=== PATIENT | female | born 1995 | race Caucasian/White ===

== ENCOUNTER → 2019-07-28 21:50 | Observation (INO) ==
[2019-07-28 19:31] LABS: Bilirubin,Urine Negative (Negative); Blood,Urine Negative (Negative); Clarity,Urine Clear (Clear); Color,Urine Yellow (Yellow); Glucose,Urine (UA) Normal (Normal); Ketones,Urine Negative (Negative); Leukocyte Esterase,Urine Moderate (Negative); Nitrite,Urine Negative (Negative); Protein,Urine Negative (Neg-Trace); Specific Gravity,Urine 1.028 (1.010-1.025); Urobilinogen,Urine Normal (Normal)
[2019-07-28 19:32] LABS: Bacteria,Urine Few per hpf (None-Few); Hyaline Casts,Urine None Seen per lpf (None-Few); RBC,Urine 0-3 per hpf (0-3); Squamous Epithelial Cell,Urine Many per lpf (None-Few)
[2019-07-28 20:38] LABS: Candida DNA DETECTED (Not Detect); Gardnerella DNA DETECTED (Not Detect); Trichomonas DNA Not Detected (Not Detect)
== END | disposition home or self-care (01) ==
LOC: 1NENULAB
PROVIDERS: ADMIT Advanced Practice Midwife; ATTEND Advanced Practice Midwife

== ENCOUNTER 2021-07-27 13:18 | Inpatient (IN) ==
[~2021-07-27 13:18] MED LIST: Azithromycin 500 MG in 0.9 % Sodium Chloride 250 ML IVPB PRN; Famotidine 20 MG/2 ML VIAL IVP PRN; Metoclopramide 10 MG/2 ML VIAL IVP PRN; Naloxone 0.4 MG/ML INJ IVP PRN; Ondansetron 4 MG/2 ML VIAL IVP PRN
[2021-07-27] MEDS ORDERED: Ringers Solution, Lactated 1,000 ML IVC SCH (13:30)
[2021-07-27 13:53] LABS: Amphetamine Screen,Urine Negative ng/mL (Cutoff=1000); Barbiturate Screen,Urine Negative ng/mL (Cutoff=200); Benzodiazepines Screen,Urine Negative ng/mL (Cutoff=200); Cannabinoid Screen,Urine Negative ng/mL (Cutoff = 50); Cocaine Screen,Urine Negative ng/mL (Cutoff= 300); Opiate Screen,Urine Negative ng/mL (Cutoff=300); Phencyclidine Screen,Urine Negative ng/mL (Cutoff=25)
[2021-07-27 13:54] LABS: Basophils % 0.4 %; Eosinophils # 0.1 K/mcL (0.0-0.6); Eosinophils % 0.8 %; Hematocrit 31.2 % (35.3-44.9); Hemoglobin 9.4 g/dL (11.5-15.4); Immature Granulocytes % 0.5 % (0-4); Lymphocytes # 1.6 K/mcL (0.6-4.6); Lymphocytes % 13.8 %; Mean Corpuscular HGB Conc 30.1 g/dL (31.6-35.5); Mean Corpuscular Hemoglobin 22.4 pg (28.0-33.3); Mean Corpuscular Volume 74.5 fL (83.0-100.0); Mean Platelet Volume 10.6 fL (9.4-12.4); Monocytes # 0.8 K/mcL (0.0-1.3); Monocytes % 7.3 %; Neutrophils # 8.8 K/mcL (1.6-8.9); Platelet Count 290 K/mcL (140-400); Red Blood Count 4.19 M/mcL (3.82-4.97); Red Cell Distribution Width 17.3 % (11.5-14.5); Segmented Neutrophils % 77.2 %; White Blood Count 11.4 K/mcL (4.3-11.1)
[2021-07-27] MEDS ORDERED: Penicillin G Potassium 5,000,000 UNIT in 0.9 % Sodium Chloride Mini Bag 100 ML IVPB ONE (14:00)
[2021-07-27] MEDS ORDERED: *HR* FentaNYL (PF) 100 MCG/2 ML VIAL ONE (14:08)
[2021-07-27] MEDS ORDERED: Ropivacaine/PF 0.2% 20 ML VIAL ONE (14:08)
[2021-07-27] MEDS ORDERED: Epidural Premix (fent/bupiv) 110 ML EP ONE (14:10)
[2021-07-27 14:18] LABS: Influenza A PCR Negative (Negative); Influenza B PCR Negative (Negative); Resp. Syncytial Virus PCR Negative (Negative)
[2021-07-27] MEDS ORDERED: EPHEDrine 50 MG/ML VIAL IVP PRN (14:32)
[2021-07-27 14:37] LABS: SARS-CoV-2 by PCR (In House) Negative (Negative)
[2021-07-27] MEDS ORDERED: Epidural Premix (fent/bupiv) 110 ML EP SCH (14:45)
[2021-07-27] MEDS ORDERED: Oxytocin 20 units/ LR 1000 mL 20 UNIT/1,000 ML BAG IVC SCH ×2 (18:00→22:23)
[2021-07-27] MEDS ORDERED: Penicillin G Potassium 2,500,000 UNIT/105 ML MLS IVPB SCH (18:00)
[2021-07-27] MEDS ORDERED: Acetaminophen 325 MG TABLET PO ONE (18:10)
[2021-07-27] MEDS ORDERED: Acetaminophen 325 MG TABLET PO SCH (22:23)
[2021-07-27] MEDS ORDERED: Rho Immune Globulin 1,500 UNIT SYRINGE IM PRN (22:23)
[2021-07-27] MEDS ORDERED: Measles/Mumps/Rubella Vacc 0.5 ML VIAL SQ PRN (22:23)
[2021-07-27] MEDS ORDERED: Lanolin 7 G OINT...G. TP PRN (22:23)
[2021-07-27] MEDS ORDERED: Ondansetron ODT 4 MG TAB.RAPDIS SL PRN (22:23)
[2021-07-27] MEDS ORDERED: Benzocaine/Menthol 56 GM AEROSOL SPRAY TP PRN (22:23)
[2021-07-27] MEDS: Ibuprofen 600 MG TABLET PO SCH (23:32)
[2021-07-28 05:31] LABS: Basophils % 0.4 %; Eosinophils # 0.1 K/mcL (0.0-0.6); Hematocrit 27.5 % (35.3-44.9); Hemoglobin 8.2 g/dL (11.5-15.4); Immature Granulocytes % 0.6 % (0-4); Lymphocytes # 1.8 K/mcL (0.6-4.6); Lymphocytes % 17.3 %; Mean Corpuscular HGB Conc 29.8 g/dL (31.6-35.5); Mean Corpuscular Hemoglobin 22.2 pg (28.0-33.3); Mean Corpuscular Volume 74.5 fL (83.0-100.0); Mean Platelet Volume 10.4 fL (9.4-12.4); Neutrophils # 7.5 K/mcL (1.6-8.9); Platelet Count 234 K/mcL (140-400); Red Blood Count 3.69 M/mcL (3.82-4.97); Red Cell Distribution Width 17.3 % (11.5-14.5); Segmented Neutrophils % 71.7 %; White Blood Count 10.5 K/mcL (4.3-11.1)
[2021-07-28] MEDS ORDERED: Prenatal Vit/FA 1 EACH TABLET PO SCH (09:00)
[2021-07-28] MEDS ORDERED: GI Cocktail 40 ML EACH PO ONE (09:47)
[2021-07-28] MEDS: Ibuprofen 600 MG TABLET PO SCH (10:12)
[2021-07-28 15:38] VITALS: BP 115/83; PULSE 80; TEMP 98.3; O2SAT 100
== END 2021-07-28 19:41 | disposition home or self-care (01) | DRG 560 ==
LOC: 1NENULAB → 1NENUOBS 22:24
PROVIDERS: ADMIT Student in an Organized Health Care Education/Training Program; ATTEND Student in an Organized Health Care Education/Training Program